=== PATIENT | female | born 1950 | race Two or more races ===

== ENCOUNTER 2018-10-09 11:43 | Inpatient (IN) | payer OTHER ==
[~2018-10-09] VITALS: Ht 157.5 cm; Wt 5.0 kg
[~2018-10-09 11:43] MED LIST: ADVAIR 2501 DISK W/1 IH; ALBUTEROL2.5 MG/3 M IH; AMBIEN5 MG PO; ARNUITY ELLIP100 MCG; AZITHROMYCIN500 MG PO; GABAPENTIN300 MG PO; INDERAL XL80 MG PO; IRBESARTAN300 MG PO; LEVAQUIN750 MG PO; LIPITOR20 MG PO; MEDROL4 MG PO; MEDROLPACK PO; MONTELUKAST SOD10 MG PO; PROAIR RESPICL90 MCG IH; PROVENTIL3 ML/2.5 M IH; TUSSI PRES-B L120 M1 PO; TUSSIONEX PENNKI5 ML PO; VASOFLEX D1 CA1 EACH PO; XOPENEX1.25 MG/0. IH; ZANAFLEX2 MG PO; ZITHROMAX TRI-500 MG PO
--- NOTE | 2018-10-09 12:11 | NUR ---
PACIENTE ALERTA Y ORIENTADA X3. REFIERE VENIR POR ASMA DESDE HACE 1 SEMANA Y MEDIA, BAJO TRATAMIENTO MEDICO Y AUN NO A CHRISTOFER. YING AUSCULTA A PACIENTE Y REFIERE DEBE SER EVALUADA POR OBSERVACION. SE UBICA EN ASMA UNIT A LA PACIENTE.
[2018-10-09] MEDS ORDERED: VITAMIN C WITH500 MG (12:14)
[2018-10-09] MEDS ORDERED: SINGULAIR 10MG10 MG (12:15)
[2018-10-09] MEDS ORDERED: INDERAL XL80 MG (12:15)
[2018-10-09] MEDS ORDERED: VASOFLEX D1 CA1 EACH (12:16)
[2018-10-09] MEDS ORDERED: AVAPRO300 MG (12:16)
[2018-10-09] MEDS ORDERED: NABUMETONE500 MG (12:17)
[2018-10-09] MEDS ORDERED: ZYRTEC10 M3 (12:17)
[2018-10-09] MEDS ORDERED: ACID CONTROL150 MG (12:18)
[2018-10-09] MEDS ORDERED: VITAMIN E400 UNI2 (12:18)
[2018-10-09] MEDS ORDERED: VITAMIN D32000 UNIT (12:18)
[2018-10-09] MEDS ORDERED: SUPER B-50 COM1 EACH (12:18)
[2018-10-09] MEDS ORDERED: NEURONTIN300 MG (12:19)
[2018-10-09] MEDS ORDERED: NEURONTIN600 MG (12:19)
--- NOTE | 2018-10-09 12:47 | NUR ---
EVALUA PACIENTE Y ORDENA TRATAMIENTO MEDICO DEL CUAL SE ORIENTA PACIENTE.PACIENTE REFIERE ENTENDER. SE COLECTAN MUESTRAS DE LABORATORIOS Y ADMINISTRA MEDICAMENTO ANTHONY ORDEN MEDICA SIGUIENDO MEDIDAS ASEPTICAS. SE NOTIFICA ESTUDIO DE RX A PERSONAL DE TURNO. SE NOTIFICA ABG Y TERAPIAS A PERSONAL DE TERAPIA RESPIRATORIA. SE MANTIENE PACIENTE BAJO OBSERVACION.
--- NOTE | 2018-10-09 15:06 | NUR ---
SE RECIBE PTE ALERTA Y ORIENTADA EN LAS 3 ESFERAS EN LA UNIDAD DE ASMA.PTE NO REFIERE SENTIR DOLOR. H/L, EN BRAZO CHUYITA, AREA EMIR DE EDEMA Y ERITEMA. PENDIENTE RE-EVALUACION MEDICA. SE MANTIENE EN OBSERVACION POR CAMBIOS EN RICE CONDICION MEDICA.
--- NOTE | 2018-10-09 23:06 | NUR ---
SE RECIBE PACIENTE ALERTA Y ORIENTADA X3 EN CAMA CON BARANDAS ELEVADAS Y CABEZERA A 45 GRADOS. AREA DE VENOPUNCION PATENTE EMIR DE EDEMA O ERITEMA EN SALINE LOCK. PACIENTE NIEGA DISNEA, DOLOR DE PECHO, TAQUINEA O FALTA DE AIRE. SE MANTIENEN BAJO OBSERVACION.
--- NOTE | 2018-10-10 07:04 | NUR ---
PTE ALERTA Y ORIENTADA X 3 ESFERAS EN CAMA CON BARANDAS ELEVADAS,EN COMPANIA DE FAMILIAR.NO PRESENTA DIFICULTAD RESPIRATORIA AL MOMENTO DE LA CAPRI.AREA DE VENOPUNCION PATENTE Y EMIR DE EDEMA.PENDIENTE A EVALUACION DE DR MOROCHO.
--- NOTE | 2018-10-10 12:03 | NUR ---
SE RAUL MORRIS NASAL @ 3LTS ANTHONY ORDEN MEDICA.
[2018-10-15] MEDS ORDERED: OSEL75CA PO (10:17)
[2018-10-15] MEDS ORDERED: LEVAQUIN750 MG PO (10:18)
[2018-10-15] MEDS ORDERED: MEDROLPACK PO (10:18)
[2018-10-15] MEDS ORDERED: XOPENEX HFA15 GM IH (10:19)
[2018-10-15] MEDS ORDERED: BREO ELLIPTA 21 EACH IH (10:52)
== END 2018-10-15 11:00 | disposition home or self-care (01) | DRG 202 ==
LOC: ER 11:43 → MEDJ 10-10 15:13
PROVIDERS: ADMIT Internal Medicine
PROC: 4A033R1 Measurement of Arterial Saturation, Peripheral, Percutaneous Approach (ICD-10-PCS; principal; 2018-10-10)
PROC: BB24ZZZ Computerized Tomography (CT Scan) of Bilateral Lungs (ICD-10-PCS; 2018-10-10)
PROC: 3E0F7GC Introduction of Other Therapeutic Substance into Respiratory Tract, Via Natural or Artificial Opening (ICD-10-PCS; 2018-10-10)
DX: J45.901 Unspecified asthma with (acute) exacerbation (principal); J44.1 Chronic obstructive pulmonary disease with (acute) exacerbation; I11.9 Hypertensive heart disease without heart failure; I34.1 Nonrheumatic mitral (valve) prolapse; J09.X2 Influenza due to identified novel influenza A virus with other respiratory manifestations

== ENCOUNTER 2018-12-15 11:19 | Emergency (ER) | payer OTHER ==
[~2018-12-15] VITALS: Ht 157.5 cm; Wt 59.0 kg
[~2018-12-15 11:19] MED LIST changes: +ACID CONTROL150 MG; +AVAPRO300 MG; +BREO ELLIPTA 21 EACH IH; +INDERAL XL80 MG; +NABUMETONE500 MG; +NEURONTIN300 MG; +NEURONTIN600 MG; +OSEL75CA PO; +SINGULAIR 10MG10 MG; +SUPER B-50 COM1 EACH; +VASOFLEX D1 CA1 EACH; +VITAMIN C WITH500 MG; +VITAMIN D32000 UNIT; +VITAMIN E400 UNI2; +XOPENEX HFA15 GM IH; +ZYRTEC10 M3
== END 2018-12-15 15:20 | disposition home or self-care (01) ==
LOC: ER 11:19
DX: J45.998 Other asthma (principal); J11.1 Influenza due to unidentified influenza virus with other respiratory manifestations

== ENCOUNTER → 2019-05-27 | Emergency (ER) | payer OTHER ==
[~2019-05-27] VITALS: Ht 157.5 cm; Wt 63.0 kg
[~2019-05-27] MED LIST changes: +ASMANEX110 MCG IH; +AVAPRO300 MG PO; +CILOSTAZOL100 MG PO; +HYDROXYCHLOROQ200 MG PO; +PROAIR HFA8.5 GM IH; +SINGULAIR 10MG10 MG PO; +VASOFLEX TABLE1 EACH PO
== END | disposition left against medical advice (07) ==
LOC: ER 07:03
DX: Z53.20 Procedure and treatment not carried out because of patient's decision for unspecified reasons (principal)

== ENCOUNTER 2019-06-28 11:54 | Inpatient (IN) | payer OTHER ==
[~2019-06-28] VITALS: Ht 152.4 cm; Wt 59.0 kg
--- NOTE | 2019-06-28 12:14 | NUR ---
PTE INDICA QUE SIENTE MAREO, TOS PRODUCTIVA Y FIEBRE. PTE ALERTA CONSCIENTE Y ORIENTADA X3
--- NOTE | 2019-06-28 13:47 | NUR ---
EVALUADA POR LA SE ORIENTA SOBRE TRATAIENTO MEDICO POR LE EXTRAE MUESTRAS DE RAVI Y SE ENVIAN AL LABORATORIO. SREFIERE TENER MAREOS. SE MANTIENE EN OBSERVACION. SE LE NOTIFICA A DE TERAPIA RESPIRATORIA PARA COMENZAR TERAPIA.
--- NOTE | 2019-06-28 15:46 | NUR ---
SE RECIBE PTE ALERTA Y ORIENTADA X3 EN FERNANDA CON BARANDAS ELEVADAS. SE RECIBE PTE CANALIZADA AREA EMIR DE EDEMA Y DE ENROJECIMIENTO. PTE EN ESPERA DE TERAPIAS LAS CUALES SE NOTIFICAN A TERAPISTA DE TURNO.
[2019-07-06] MEDS ORDERED: NIFEDIPINE ER30 MG PO (14:54)
[2019-07-06] MEDS ORDERED: AVAPRO300 MG PO (14:54)
[2019-07-06] MEDS ORDERED: DOXAZOSIN MESYLA4 MG PO (14:55)
[2019-07-06] MEDS ORDERED: MEDROLPACK PO (14:56)
[2019-07-06] MEDS ORDERED: LEVAQUIN750 MG PO (15:13)
[2019-07-06] MEDS ORDERED: PANTOPRAZOLE SO40 MG PO (15:13)
== END 2019-07-06 16:24 | disposition home or self-care (01) | DRG 190 ==
LOC: ER 11:54 → SEC-K 22:13 → MEDI 22:13 → MEDJ 23:15
PROVIDERS: ADMIT Internal Medicine
PROC: BB24ZZZ Computerized Tomography (CT Scan) of Bilateral Lungs (ICD-10-PCS; principal; 2019-06-28)
PROC: 3E0F7GC Introduction of Other Therapeutic Substance into Respiratory Tract, Via Natural or Artificial Opening (ICD-10-PCS; 2019-06-28)
PROC: 8E0ZXY6 Isolation (ICD-10-PCS; 2019-06-29)
PROC: 4A033R1 Measurement of Arterial Saturation, Peripheral, Percutaneous Approach (ICD-10-PCS; 2019-07-04)
DX: J44.1 Chronic obstructive pulmonary disease with (acute) exacerbation (principal); J15.7 Pneumonia due to Mycoplasma pneumoniae; J45.901 Unspecified asthma with (acute) exacerbation; I34.1 Nonrheumatic mitral (valve) prolapse; I11.9 Hypertensive heart disease without heart failure; J11.1 Influenza due to unidentified influenza virus with other respiratory manifestations; J20.9 Acute bronchitis, unspecified